=== PATIENT | male | born 1990 | race Caucasian/White ===

== ENCOUNTER 2021-11-19 22:32 | Emergency (ER) | payer OTHER, SELFPAY ==
--- NOTE | ~2021-11-19 | CT_ITS ---
EXAMINATION: CT abdomen pelvis w con DATE: 11/20/2021 01:37 INDICATION: Upper abdominal pain. Hematochezia. TECHNIQUE: Computed tomography (CT) of the abdomen and pelvis was performed with 100 mL Omnipaque 350 intravenous contrast. Automated exposure control and iterative reconstruction technique were employe d. The dose-length product was 514.01 mGy-cm. COMPARISON: None. FINDINGS: The visualized portions of the lung bases demonstrate mild atelectasis. No pleural effusion . The heart size is normal. No pericardial effusion. There is diffuse hepatic steatosis. The gallblad dillan, spleen, pancreas, adrenal glands, and kidneys are normal. There are no dilated loops of bowel. T he appendix is normal. There are no pathologically enlarged lymph nodes. There is no free intraperito bebe fluid. There is lumbar dextroscoliosis. IMPRESSION: 1. Diffuse hepatic steatosis. Reviewed, dictated and finalized at location A.
[2021-11-19 22:33] VITALS: BP 141/87; PULSE 94; RESP 14; TEMP 36.2; O2SAT 98
--- NOTE | 2021-11-20 00:26 | ED.ABDPAIN ---
HPI - Abdominal Pain General Chief Complaint: Abdominal Pain Stated Complaint: blood in stool Time Seen by Provider: 11/19/21 23:24 History of Present Illness HPI narrative: 31-year-old male presents to the emergency room for evaluation of bloody stools that he has had for over 2 weeks. Patient states he seen his regular doctor and was referred to a GI for further evaluation. Patient states that he has not been examined for blood in his stool. Reports that last night he began having upper abdominal discomfort is worse when he sits up. Denies any abdominal surgeries. Denies nausea vomiting diarrhea or constipation. States that he has normal formed stools daily. Denies any medications or allergies. Denies mucus in his stool. Related Data Home Medications Medication Instructions Recorded Confirmed No Home Medications 11/20/21 11/20/21 Allergies Allergy/AdvReac Type Severity Reaction Status Date / Time No Known Allergies Allergy Verified 11/20/21 00:24 Review of Systems Review of Systems: CONSTITUTIONAL: Denies fever, chills, or sweats. EYES: Denies visual changes, redness, or discharge. ENT: Denies rhinorrhea, congestion, sore throat, or otalgia. CARDIOVASCULAR: Denies chest pain, palpitations, or edema. RESPIRATORY: Denies cough or dyspnea. GASTROINTESTINAL: Reports bloody stools GENITOURINARY: Denies dysuria or hematuria. SKIN: Denies rash or itching. MUSCULOSKELETAL: Denies back pain, joint pain, or myalgia. NEUROLOGIC: Denies headache, numbness, dizziness, or weakness. PSYCHIATRIC: Denies anxiety or depression. Exam Narrative: GENERAL: Well-appearing, well-nourished, no physical limitations, and in no acute distress. HEAD: Normocephalic, atraumatic. EYES: Conjunctivae normal, PERRLA and EOMI. CHEST: Clear to auscultation. No respiratory distress. No wheezes rales or rhonchi. No tenderness. HEART: Regular rate and rhythm. No murmur heard. Normal peripheral pulses. ABDOMEN: Soft, periumbilical/epigastric tenderness, nondistended, normal active bowel sounds. External hemorrhoids present EXTREMITIES: Normal range of motion. No edema. No clubbing or cyanosis SKIN: Warm, dry, no rash. No noted wounds NEURO: No focal deficits. Alert and oriented x3. MAEW. CN's II-XI intact bilaterally, normal gait PSYCH: Cooperative. Normal mood and affect. Procedures Stool Hemoccult Stool hemoccult #1: Stool Hemoccult Date: 11/20/21 Stool Hemoccult Time: 01:23 Procedural Steps Taken: stool placed in appropriate test area, developer placed on stool and control areas and controls appropriately positive and negative Hemoccult result: negative Course Vital Signs Vital signs: Vital Signs Temperature 36.2 C L 11/19/21 22:33 Pulse Rate 94 11/19/21 22:33 Respiratory Rate 14 11/19/21 22:33 Blood Pressure 141/87 H 11/19/21 22:33 Pulse Oximetry 98 11/19/21 22:33 Oxygen Delivery Room Air 11/19/21 22:33 Temperature 36.2 C L 11/19/21 22:33 Pulse Rate 94 11/19/21 22:33 Respiratory Rate 14 11/19/21 22:33 Blood Pressure 141/87 H 11/19/21 22:33 Pulse Oximetry 98 11/19/21 22:33 Oxygen Delivery Room Air 11/19/21 22:33 MDM - Abdominal Pain MDM Narrative Medical decision making narrative: 31-year-old male presented with abdominal pain. Exam was without any peritoneal signs. No evidence of an acute appendectomy at this time. Patient is well-appearing. Work-up shows low suspicion for acute hepatobiliary disease or pancreatitis. No infectious process present. CT scan shows no evidence of appendicitis or bowel obstruction. Presentation is not consistent with any acute emergent cause of abdominal pain at this time. Will have patient follow-up with GI. Imaging Data My impression: No acute intra-abdominal abnormality Discharge Plan Discharge Clinical Impression: Abdominal pain Patient Disposition: Home, Self-Care Condition: Stable Instructions: Antibiotic
[2021-11-20 00:41] LABS: Basophils Percent Auto 0.5 % (0.2-1.2); Eosinophils Absolute Auto 0.1 K/mm3 (0-0.3); Eosinophils Percent Auto 1.7 % (0-4.4); Hematocrit 45.7 % (42.0-52.0); Hemoglobin 16.1 g/dL (14.0-18.0); Immature Granulocyte Absolute 0.02 K/mm3 (0.00-0.031); Immature Granulocyte Percent A 0.2 % (0-0.5); Lymphocytes Absolute Auto 2.61 K/mm3 (0.9-3.2); Lymphocytes Percent Auto 31.8 % (18.3-44.2); Mean Corpuscular HGB Conc 35.2 g/dl (32-36); Mean Corpuscular Hemoglobin 29.5 pg (26-34); Mean Corpuscular Volume 83.9 fl (80-100); Mean Platelet Volume 9.9 fl (7.4-10.4); Monocytes Absolute Auto 0.6 K/mm3 (0.1-0.6); Monocytes Percent Auto 7.7 % (2.6-8.5); Neutrophils Absolute Auto 4.8 K/mm3 (1.3-6.7); Neutrophils Percent Auto 58.1 % (45.5-73.1); Platelet Count Result 212 k/mm3 (150-375); Red Blood Count 5.45 M/mm3 (4.6-6.20); Red Cell Distribution Width 11.3 % (11.5-14.5); White Blood Count 8.2 K/mm3 (4.5-10.0)
[2021-11-20 00:42] LABS: Appearance Urine Clear (Clear); Bilirubin Urine Negative (Negative); Blood Urine Negative (Negative); Color Urine Yellow (Yellow); Glucose Urine UA Negative (Negative); Ketones Urine Negative (Negative); Leukocyte Esterase Ur 1+ LEU/UL (Negative); Nitrate Urine Negative (Negative); Protein Urine Negative (Negative); Specific Grav Ur <= 1.005 (1.001-1.035); Urobilinogen Urine 0.2 mg/dL (<2.0); pH Urine 5.5 (5.0-9.0)
[2021-11-20 00:51] LABS: Alanine Aminotransferase 28 U/L (6-50); Albumin Level 4.5 g/dL (3.5-5.1); Alkaline Phosphatase 95 U/L (38-126); Anion Gap 13 mmol/L (8-16); Aspartate Amino Transferase 27 U/L (17-59); Bilirubin,Total 0.4 mg/dL (0.2-1.3); Blood Urea Nitrogen 14 mg/dL (9-20); Calcium 9.1 mg/dL (8.4-10.2); Carbon Dioxide 28 mmol/L (22-30); Chloride 98 mmol/L (98-107); Estimated CRCL calculation 113 ml/min; Estimated Glomerular Filt Rate > 60; Glucose 106 mg/dL (65-110); Lipase 52 U/L (23-300); Potassium 3.5 mmol/L (3.4-5.0); Sodium 139 mmol/L (137-145)
[2021-11-20 01:08] LABS: Add Urine Microscopic? YES
[2021-11-20 01:19] VITALS: BP 117/86; PULSE 75; RESP 20; O2SAT 98
--- NOTE | 2021-11-20 01:23 | PC.NURSE ---
Patient taken to CT.
[2021-11-20 01:36] LABS: CRP < 0.5 mg/dL (<1.0)
[2021-11-20 02:32] LABS: Erythrocyte Sedimentation Rate 11 mm/hr (0-20)
== END 2021-11-20 02:23 | disposition home or self-care (01) ==
PROVIDERS: Emergency Provider Nurse Practitioner Family; PCP Family Medicine
DX: R10.9 Unspecified abdominal pain (principal)
CPT/HCPCS: 36415; 74177; 80053; 81001; 83690; 85025; 85652; 86140; 99284; Q9967